=== PATIENT | female | born 1955 | race Caucasian/White ===

== ENCOUNTER → 2017-04-02 | Outpatient (CLI) | payer BC ==
[~2017-04-02] MED LIST: BIOT1CAP3 PO; GLUCTAB7 PO; LEVO75TA5 PO; MULTCAP42 PO; OMEGCAP2 PO
--- NOTE | 2017-04-03 13:54 | MAMMOGRAPHY REPORT ---
BILATERAL DIGITAL SCREENING MAMMOGRAM TOMOSYNTHESIS WITH CAD: 04/02/2017 CLINICAL HISTORY: Routine screening. TECHNIQUE: Breast tomosynthesis in addition to standard 2D mammography was performed. Current study was also evaluated with a Computer Aided Detection (CAD) system. COMPARISON: Comparison is made to exams dated: 03/24/2015 mammogram, 03/30/2016 mammogram, 03/23/2014 smith mogram, 03/19/2013 mammogram, 03/13/2012 mammogram, and 03/07/2011 mammogram - [facility]. BREAST COMPOSITION: There are scattered areas of fibroglandular density in both breasts. FINDINGS: There is fluctuating nodularity in the left breast, most likely representing fluctuating c ysts. No suspicious spiculated or irregular mass, architectural distortion or cluster of suspicious microcalcifications is seen. IMPRESSION: ACR BI-RADS CATEGORY 1: NEGATIVE There is no mammographic evidence of malignancy. A 1 year screening mammogram is recommended. The pa tient will receive written notification of the results. Approximately 10% of breast cancers are not detected with mammography. A negative mammographic report should not delay biopsy if a clinically suggestive mass is present. Justina Alvares M.D. ay/:04/02/2017 16:44:55 Avionics Integration Engineer: Kathy TRAORE(R)(M), [facility] letter sent: Normal 1/2 BI-RADS Code: ACR BI-RADS Category 1: Negative
== END | disposition home or self-care (01) ==
LOC: C.MAMM 08:45
PROVIDERS: ATTEND Obstetrics & Gynecology
DX: Z12.31 Encounter for screening mammogram for malignant neoplasm of breast (principal)

== ENCOUNTER → 2018-05-14 | Outpatient (CLI) | payer OTHER ==
--- NOTE | 2018-05-14 15:14 | MAMMOGRAPHY REPORT ---
UNILATERAL LEFT DIGITAL DIAGNOSTIC MAMMOGRAM TOMOSYNTHESIS AND TARGETED LEFT ULTRASOUND: 05/14/2018 CLINICAL HISTORY: 6 mm and 7 mm masses noted in the left breast on screening mammography. Patient pre sents for additional workup in the left breast. TECHNIQUE: Spot compression left CC and MLO tomosynthesis images were obtained. COMPARISON: Comparison is made to exams dated: 04/08/2018 mammogram, 04/02/2017 mammogram, 03/30/2016 ma mmogram, 03/24/2015 mammogram, 03/23/2014 mammogram, and 03/19/2013 mammogram - [facility]. BREAST COMPOSITION: The tissue of left breast is heterogeneously dense, which may obscure small mayra s. FINDINGS: There is persistence of a lobulated, 10 x 5 mm mass in the medial anterior left breast on t he spot compression CC tomosynthesis images, not definitively seen on the spot compression MLO tomosy nthesis images. No associated architectural distortion or calcification. [facility] The second asymmetry along the posterior nipple line on the MLO view is no l onger seen. No focal area of architectural distortion, other obvious mass or suspicious calcificatio n identified. Targeted ultrasound was performed in the left breast. In the 7:00 periareolar left breast, there is a lobulated mixed anechoic and centrally isoechoic possible solid and cystic mass measuring 9.2 x 3.9 x 6.4 mm. A second mixed anechoic and isoechoic cystic-appearing mass is noted in the 10:00 left br east, 1 cm from the nipple measuring 6.0 x 2.6 x 5.9 mm. Although both of these masses could represe nt complicated cysts, mixed solid and cystic masses cannot be excluded and definitive characterizatio n with ultrasound-guided core biopsy 2 in the left breast is recommended. Correlation with post pro cedure mammograms is recommended as the 7:00 mass likely corresponds with the medial mammographic fin ding but it is unclear if the 10:00 mass was incidentally seen or may possibly correlate with the sec ond effacing asymmetry. IMPRESSION: ACR BI-RADS CATEGORY 4: SUSPICIOUS, ULTRASOUND ACR BI-RADS CATEGORY 4: SUSPICIOUS Left breast ultrasound-guided core biopsy 2 is recommended in the left breast at 7:00 and 10:00, for indeterminate possible mixed solid and cystic masses. The 7:00 mass may correlate with 1 of the smith mographic findings but it is unclear if the second mass in the 10:00 axis correlates with an effacing asymmetry or is incidentally noted. Correlation with postprocedure mammograms is recommended. These results and recommendations were discussed with the patient at the time of the exam. She tenta tively scheduled the biopsies prior to leaving the department. Some breast cancers are not detected with mammography. A negative mammographic report should not singh y biopsy if a clinically suggestive mass is present. Justina Alvares M.D. ay/:05/14/2018 13:48:59 Production Associate: RT Tio(Ghazala)(M), [facility] letter sent: Abnormal 4/5 OVERALL STUDY BIRADS: 4 Suspicious abnormality
== END | disposition home or self-care (01) ==
LOC: C.MAMM 09:29
PROVIDERS: ATTEND Obstetrics & Gynecology
DX: N63.20 Unspecified lump in the left breast, unspecified quadrant (principal)

== ENCOUNTER → 2018-05-15 | Outpatient (CLI) | payer OTHER ==
--- NOTE | 2018-05-15 14:09 | Discharge Instructions ---
Discharge Instructions Procedure Procedure Date: May 15, 2018. Reason for visit: X 2 Left Masses. Discharge Discharge Date: May 15, 2018. Discharge Diagnosis: post left breast ultrasound guided core biopsy x 2 Instructions Activity Recommendations: Additional Limitations (see below) Return to School/Work: no limitations Recommended Home Diet: No Limitations Provider Instructions: ACTIVITY RECOMMENDATIONS: * No lifting, pushing, pulling or exercising the affected side for three days. RETURN TO SCHOOL/WORK: * You may return to work/school after the procedure, but do not perform any strenuous activities for 24 to 48 hours. MEDICATIONS: * Tylenol (two 325 mg) every four to six hours if needed for mild pain (if not allergic to Tylenol). DIET: * Resume previous diet. SPECIAL CARE INSTRUCTIONS: * Keep biopsy site dry for 24 hours. May shower after 24 hours, but do not soak (bathe) incision. May remove Tegaderm (plastic patch) 24 hours after procedure * Leave the steri-strips on for one week. Allow the steri-strips to fall off by themselves. If not off after one week, you may remove them. You may place a Bandaid crosswise over the strips, if desired. * Apply ice 10 minutes on and 10 minutes off as needed. * Wear a bra at bedtime to sleep more comfortably for 2-3 days. * Your referring physician should have the results after approximately 5 to 7 business days. * Call for unusual bleeding, fever, drainage, etc or if you have any questions call [phone] during normal business hours or after hours call Dr Alvares, . FOLLOW UP VISIT: Follow-up with Referring Physician as scheduled. Allergies Coded Allergies: Penicillins (Verified Allergy, Unknown, [place], 04/12/15) RXT IN CHILDHOOD Sulfa Antibiotics (Verified Allergy, Unknown, UNKNOWN, 04/12/15) RXT IN CHILDHOOD Hugh Astorga Recommendations: Call your doctor if: * Temperature above 101 degrees * Pain not relieved by pain medicine ordered * There is increased drainage or redness from any incision * You have any unanswered questions or concerns. Your Doctors Instructions noted above were prepared by provider Justina Alvares. Patient Signature Section: Patient Instructions Signature Page Shruthi Chao Patient (or Guardian) Signature/Date: I have read and understand the instructions given to me by my caregivers. Caregiver/RN/Doctor Signature/Date: The above-named patient and/or guardian has received patient instructions on this date. + Original Patient Signature Page (only) stays with chart. Please make copy for patient.
--- NOTE | 2018-05-16 15:10 | MAMMOGRAPHY REPORT ---
MULTIPLE ULTRASOUND GUIDED BIOPSIES LEFT BREAST: 05/15/2018 CLINICAL HISTORY: 62-year-old woman initially called back from screening mammography for left breast asymmetries. Additional diagnostic mammogram and ultrasound in the left breast demonstrated indetermi mai possible mixed solid and cystic masses in the 7:00 and 10:00 axes of the left breast. Patient pr esents for ultrasound-guided core biopsy 2 in the left breast. COMPARISON: Comparison is made to exams dated: 05/14/2018 ultrasound, 05/14/2018 mammogram, 04/02/2017 mammogram, 03/30/2016 mammogram, 03/24/2015 mammogram, and 03/26/2014 mammogram - [facility]. PATIENT CONSENT: The procedure, risks and benefits were discussed with the patient and informed conse nt was obtained both verbally and in writing. Specific risks to this procedure include: bleeding, in fection, puncture of adjacent structure, nontarget biopsy, sampling error, pain, metal allergy and me dication reaction. PROCEDURE DESCRIPTION: A time out was performed and the left breast was agreed as the site for both b iopsies. The skin of the left breast was prepped and draped in the usual sterile fashion. First, the mixed anechoic and isoechoic solid and cystic mass in the 10:00 left breast was identified and targeted for biopsy. Subcutaneous and intraparenchymal 1% buffered lidocaine, with and without epinephrine, was administered as local anesthesia. A skin incision was made. Through the incision, 2 samples were taken with a 14 gauge Achieve biopsy device. A ribbon shaped metallic marker was placed at the biopsy site. Hemostasis was achieved after manual compression. The patient tolerated the proc edure well and there was no immediate complication. Second, a mixed anechoic and isoechoic solid and cystic mass in the 7:00 periareolar left breast was identified and targeted for biopsy. Additional subcutaneous and intraparenchymal 1% buffered lidocai ne, with and without epinephrine, was administered as local anesthesia. A skin incision was made. Th rough the incision, 2 samples were taken with a 14 gauge Achieve biopsy device. A wing shaped metalli c marker was placed at the biopsy site. Hemostasis was achieved after manual compression. The patient tolerated the procedure well and there was no immediate complication. All of the samples were sent to the pathology department in appropriately labeled containers. Postprocedure left CC and ML 2D and tomosynthesis images were obtained. A new ring-shaped biopsy mar ker clip is seen in the lower inner anterior left breast, aligning with one of the mammographic asymm etries in question. A ribbon-shaped biopsy marker clip is only visualized in the mediallateral proj ection in the superior posterior breast, not definitively aligning with the mammographic asymmetry. No hematoma is seen at either site. IMPRESSION: ULTRASOUND GUIDED BIOPSY Status post ultrasound-guided core biopsy 2 in the left breast at 7:00 and 10:00, with biopsy marker clips placed at each site. The mass biopsied in the 7:00 axis aligns with 1 of the mammographic asy mmetries in question. The patient will receive notification of the biopsy results from her referring physician. Justina Alvares M.D. ay/:05/15/2018 16:13:42 Hospital Pharmacy Technician: Sarah Manzo, [facility]
--- NOTE | 2018-05-16 15:10 | MAMMOGRAPHY REPORT ---
ULTRASOUND GUIDED BIOPSY: 05/15/2018 CLINICAL HISTORY: 62-year-old woman presents for left breast biopsy 2. There are indeterminate possi ble solid and cystic masses in the 7:00 periareolar and 10:00 axes of the left breast. IMPRESSION: ULTRASOUND GUIDED BIOPSY Please refer to the report from left breast ultrasound-guided core biopsy performed at the same time for full detail. Justina Alvares M.D. ay/:05/15/2018 14:13:45 [employer] Wireman: Sarah Manzo, [facility]
== END | disposition home or self-care (01) ==
LOC: C.MAMM 13:24
PROVIDERS: ATTEND Obstetrics & Gynecology
DX: N63.20 Unspecified lump in the left breast, unspecified quadrant (principal); N60.12 Diffuse cystic mastopathy of left breast; N64.9 Disorder of breast, unspecified